=== PATIENT | male | born 1960 | race American Indian/Alaskan Native ===

== ENCOUNTER 2019-05-06 02:00 | Emergency (ER) | payer SELFPAY ==
[2019-05-06 02:08] VITALS: BP 126/75
[2019-05-06 02:58] LABS: Bilirubin,Urine NEG (Negative); Blood,Urine NEG (Negative); Color,Urine Yellow (Yellow); Protein,Urine <15 mg/dL mg/dL (Negative); Urobilinogen,Urine < 2.0 mg/dL (<2.0); WBC,Urine < 1.0 /HPF (0.0-6.0)
== END 2019-05-06 03:45 ==
LOC: ED 02:00
DX: R10.9 Unspecified abdominal pain (principal); R11.2 Nausea with vomiting, unspecified; Z53.21 Procedure and treatment not carried out due to patient leaving prior to being seen by health care provider
CPT/HCPCS: 81001

== ENCOUNTER 2019-05-06 07:26 | Emergency (ER) | payer SELFPAY ==
[2019-05-06] MEDS ORDERED: ASPIRIN 325 MG TAB PO ONE (07:30)
[2019-05-06 08:02] LABS: Basophils # (Auto) 0.1 K/mm3 (0.0-0.1); Basophils % (Auto) 0.9 % (0.0-1.8); Eosinophils % (Auto) 0.3 % (0.0-4.3); Hematocrit 48.6 % (35.5-45.6); Hemoglobin 15.7 gm/dl (11.8-15.2); Lymphocytes # (Auto) 2.3 K/mm3 (1.2-5.4); Lymphocytes % (Auto) 29.2 % (13.4-35.0); Mean Corpuscular HGB Conc 32 % (32-34); Mean Corpuscular Volume 90 fl (84-94); Monocytes # (Auto) 0.6 K/mm3 (0.0-0.8); Monocytes % (Auto) 8.3 % (0.0-7.3); Red Blood Count 5.41 M/mm3 (3.65-5.03); Red Cell Distribution Width 13.6 % (13.2-15.2)
[2019-05-06 08:09] LABS: Platelet Count 297 K/mm3 (140-440)
[2019-05-06 08:25] LABS: BUN/Creatinine Ratio 11; Blood Urea Nitrogen 12 mg/dL (9-20); Calcium 10.2 mg/dL (8.4-10.2); Hemolysis Index 13
--- NOTE | 2019-05-06 08:52 | XRay Report ---
CHEST 1 VIEW INDICATION: Chest Pain. Hemoptysis, shortness of breath. COMPARISON: None FINDINGS: Support devices: None. Heart: Within normal limits. Lungs/Pleura: No acute air space or interstitial disease. Additional findings: None. IMPRESSION: No acute findings. Signer Name: Malik Bains Jr, MD Signed: 05/06/2019 8:47 AM Workstation Name: [id number]
[2019-05-06] MEDS ORDERED: ONDANSETRON 4 MG ODT TAB PO ONE (10:57)
--- NOTE | 2019-05-06 10:57 | Emergency Department Report ---
HPI - General Chief Complaint: Chest Pain Time Seen by Provider: 05/06/19 10:37 - HPI HPI: 59-year-old -[place] male presents to the emergency department with a complaint of a 1.5 day history of some lower midsternal and epigastric pain, associated with some nausea and vomiting. The symptoms have been going on intermittently. He also says that he's been having some chills without any known fever. He came in last night to be seen but started feeling better and was going to go home but the symptoms returned before he left the hospital campu s and he'll return for further evaluation. Currently he says the symptoms are very mild. He is a tobacco smoker, although he says he quit a few days ago. He has a past medical history of hypertension and borderline diabetes, not on medication. No primary care physician as he just moved up here from [place] 3 weeks ago. ED Past Medical Hx - Past Medical History Previous Medical History?: Yes Hx Hypertension: Yes - Surgical History Past Surgical History?: No - Social History Smoking Status: Former Smoker Substance Use Type: None ED Review of Systems ROS: Stated complaint: CHEST PAIN Other details as noted in HPI Comment: All other systems reviewed and negative Constitutional: chills. denies: fever Eyes: denies: eye pain, vision change ENT: denies: ear pain, throat pain Respiratory: denies: cough, shortness of breath Cardiovascular: chest pain. denies: palpitations Gastrointestinal: abdominal pain, nausea, vomiting Genitourinary: denies: dysuria, discharge Musculoskeletal: denies: back pain, arthralgia Skin: denies: rash, lesions Neurological: denies: headache, weakness Physical Exam - Physical Exam Vital Signs: Vital Signs 05/06/19 07:29 Temperature 97.7 F Pulse Rate 49 L Respiratory 18 Rate Blood Pressure 138/74 O2 Sat by Pulse 99 Oximetry Physical Exam: GENERAL: The patient is well-developed well-nourished. HENT: Normocephalic. Atraumatic. Patient has moist mucous membranes. EYES: Extraocular motions are intact. NECK: Supple. Trachea is midline. CHEST/LUNGS: Clear to auscultation. There is no respiratory distress noted. HEART/CARDIOVASCULAR: Regular. There is no tachycardia. There is no murmur. ABDOMEN: Abdomen is soft. Mild epigastric tenderness to palpation. No guarding. Patient has normal bowel sounds. There is no abdominal distention. SKIN: Skin is warm and dry. NEURO: The patient is awake, alert, and oriented. The patient is cooperative. The patient has no focal neurologic deficits. Normal speech. MUSCULOSKELETAL: There is no tenderness or deformity. There is no limitation range of motion. There is no evidence of acute injury. ED Course Vital Signs 05/06/19 07:29 Temperature 97.7 F Pulse Rate 49 L Respiratory 18 Rate Blood Pressure 138/74 O2 Sat by Pulse 99 Oximetry ED Medical Decision Making - Lab Data Result diagrams: 05/06/19 07:39 05/06/19 07:39 - EKG Data -: EKG Interpreted by Me EKG shows normal: sinus rhythm, axis, intervals, QRS complexes, ST-T waves Rate: bradycardia (43 bpm) - EKG Data When compared to previous EKG there are: previous EKG unavailable Interpretation: other (sinus bradycardia. No STEMI. ) - Radiology Data Radiology results: report reviewed, image reviewed interpreted by me: Chest x-ray does not show any acute process. There are no pleural effusions, obvious pneumonia and there is no pneumothorax. Abdominal ultrasound is a normal examination without any signs of cholelithiasis, cholecystitis, or any acute process. - Medical Decision Making This patient presents with a 1.5 day history of some lower midsternal chest and upper abdominal pain, along with nausea and vomiting. At the time of my examination his symptoms are very minimal. EKG did not show any signs of ST elevation VA or dysrhythmia. Labs have been unremarkable including negative troponins 2. Chest x-ray did not show any pleural effusions, pneumothorax, focal consolidation, pneumonia, or any other acute process. The patient was sent for an ultrasound of the abdomen for possibility of cholelithiasis but it came back as a normal examination. The patient is low on the heart score. His chest pain is atypical but his information has still been sent to [facility] for close outpatient follow-up. The patient also has been instructed to follow- up with primary care, but also to return to the emergency Department with any worsening of his symptoms or any acute distress. - Differential Diagnosis cholelithiasis, cholecystitis, VA, pancreatitis Critical care attestation.: If time is entered above; I have spent that time in minutes in the direct care of this critically ill patient, excluding procedure time. ED Disposition Clinical Impression: Atypical chest pain, Bradycardia Disposition: DC-01 TO HOME OR SELFCARE Is pt being admited?: No Condition: Stable Instructions: Chest Pain (ED), Bradycardia (ED) Additional Instructions: Please follow-up with a primary care physician in the next few days. I have sent your information over to [facility] cardiology who will contact you shortly for close outpatient follow-up regarding your chest pains. Return to the emergency Department with any worsening of your symptoms or any acute distress. Referrals: PRIMARY CAREMD [Primary Care Provider] - 2-3 Days ANN JONES MD [Staff Physician] - 2-3 Days [facility] [Outside] - 2-3 Days [facility] [Provider Group] - 2-3 Days Time of Disposition: 12:45 Heart Score - HEART Score History: Slightly suspicious EKG: Normal Age: 45-65 Risk factors: 1-2 risk factors Troponin: < normal limit HEART Score: 2 - Critical Actions Critical Actions: 0-3 pts:0.9-1.7%risk of adverse cardiac event.Candidate for discharge
[2019-05-06 11:25] LABS: Alanine Aminotransferase 24 units/L (7-56); Albumin 4.4 g/dL (3.9-5)
[2019-05-06 11:28] LABS: Bilirubin,Direct < 0.2 mg/dL (0-0.2)
--- NOTE | 2019-05-06 12:32 | Ultrasound Report ---
LIMITED RUQ ABDOMINAL ULTRASOUND INDICATION: Epigastric and right upper quadrant pain with nausea and vomiting for 2 days. COMPARISON: No relevant prior imaging study available. FINDINGS: Pancreas: Visualized portions show no significant abnormality. Abdominal Aorta: No significant abnormality. IVC: No significant abnormality. Liver: The liver measures 14 cm in length. No significant abnormality. Normal hepatopedal blood flow in the main portal vein. Gallbladder: No significant abnormality. Bile ducts: No significant abnormality. Common bile duct measures 2.6 mm. Right kidney: No significant abnormality visualized.. Free fluid: None. Additional Findings: None. IMPRESSION: Normal exam. Signer Name: Malik Bains Jr, MD Signed: 05/06/2019 12:28 PM Workstation Name: [id number]
[2019-05-06 13:11] VITALS: BP 138/72
== END 2019-05-06 13:13 | disposition home or self-care (01) ==
LOC: ED 07:26
DX: R07.89 Other chest pain (principal); R00.1 Bradycardia, unspecified
CPT/HCPCS: 36415; 71045; 76705; 80048; 80076; 83690; 84484; 85025; 93005; 93010; Q0162